=== PATIENT | female | born 1935 | race African-American/Black ===

== ENCOUNTER 2017-12-04 09:51 | Inpatient (IN) ==
[2017-12-04] MEDS ORDERED: ALBUTEROL/IPRATROPIUM 3 ML NEB RESP TX STA (10:03)
[2017-12-04] MEDS ORDERED: DILTIAZEM 50 MG/10 ML VIAL IV STA ×2 (10:03→14:37)
[2017-12-04] MEDS ORDERED: FUROSEMIDE 40 MG/4 ML VIAL IV STA ×2 (10:04→10:05)
[2017-12-04] MEDS ORDERED: DILTIAZEM INJ 100 MG in SODIUM CHLORIDE 0.9% 100 ML IV SCH (10:30)
[2017-12-04 10:33] LABS: Basophils # 0.1 10*3/uL (0.0-0.2); Basophils % 0.3 % (0.0-0.8); Eosinophils % 0.1 % (0.00-10.9); Hematocrit 40.9 VOL% (35.7-47.0); Immature Granulocytes % 2.9 %; Immature Granulocytes Absolute 0.44 #; Lymphocytes # 7.6 10*3/uL (1.4-4.0); Lymphocytes % 50.6 % (21.3-54.2); Mean Corpuscular HGB Conc 29.8 GM/DL (32-36); Mean Corpuscular Hemoglobin 23 PG (27-34); Mean Corpuscular Volume 75.7 FL (87-102); Monocytes % 6.7 % (1.7-12.7); NRBC # 0.05 10*3/uL; Neutrophils # 5.9 10*3/uL (1.4-7.4); Neutrophils % 39.4 % (38.7-73.9); Platelet Count 319 T/CUMM (130-400); Red Cell Distribution Width 17.2 % (9.3-17.3)
[2017-12-04 10:40] LABS: Hemoglobin 12.2 GM/DL (12.0-16.0)
[2017-12-04 10:44] LABS: INR 0.9; PT Patient Result 9.8 SECS; Partial Thromboplastin Time < 21.0 SECS (0-40)
[2017-12-04 10:52] LABS: Atypical Lymphocytes Few; Hypochromasia 1+; Lymphocytes 50 % (20-55); Platelet Estimate Adequate; Segmented Neutrophils 43 % (50-85); Total Cells Counted 100
[2017-12-04 10:59] LABS: Albumin 3.3 G/DL (3.4-5.0); Bilirubin,Total 0.4 MG/DL (0.2-1.0); Calcium 9.7 MG/DL (8.5-10.1); Osmolality,Calculated 287.5 MOS/KG (273-304); Potassium 4.3 MMOL/L (3.5-5.1); Total Protein 6.2 G/DL (6.4-8.3)
[2017-12-04] MEDS ORDERED: ALUM/MAG/SIMETH/LIDO VISC 1:1 30 ML BOTTLE PO ONE ×3 (11:45→19:03)
[2017-12-04] MEDS ORDERED: ALUM/MAG/SIMETH/LIDO VISC 1:1 30 ML BOTTLE PO STA (11:45)
[2017-12-04] MEDS ORDERED: ACETAMINOPHEN 325 MG TABLET PO PRN (13:30)
[2017-12-04] MEDS ORDERED: ONDANSETRON 4 MG/2 ML VIAL IV PRN (13:30)
[2017-12-04] MEDS ORDERED: DEXTROSE 50% 25 GM/50 ML VIAL IV PRN (13:50)
[2017-12-04] MEDS ORDERED: GLUCAGON 1 MG VIAL IM PRN (13:50)
[2017-12-04] MEDS ORDERED: APIXABAN 2.5 MG TABLET PO SCH (14:00)
[2017-12-04 14:01] LABS: Risk Ratio 2.64; VLDL CHOLESTEROL 42.6 MG/DL
[2017-12-04] MEDS ORDERED: methylPREDNISolone SOD SUC 40 MG/1 ML VIAL IV ONE (14:13)
[2017-12-04] MEDS: ALBUTEROL/IPRATROPIUM 3 ML NEB RESP TX SCH ×2 (14:21→19:03)
[2017-12-04] MEDS ORDERED: POLYETHYLENE GLYCOL POWDER 17 GM PACK PO SCH (17:00)
[2017-12-04] MEDS ORDERED: POLYETHYLENE GLYCOL POWDER 17 GM PACK PO ONE (17:00)
[2017-12-04] MEDS: BRIMONIDINE 0.1% OPH SOLN 5 ML BOTTLE BOTH EYES SCH ×2 (17:51→21:40)
[2017-12-04] MEDS: metFORMIN 500 MG TABLET PO SCH (18:00)
[2017-12-04] MEDS: INSULIN LISPRO 100 UNIT/ML SUBCUT SCH ×3 (18:30→22:03)
[2017-12-04] MEDS: ENOXAPARIN 80 MG/0.8 ML SYRINGE SUBCUT SCH (18:30)
[2017-12-04] MEDS ORDERED: FUROSEMIDE 40 MG/4 ML VIAL ONE (19:04)
[2017-12-04] MEDS ORDERED: METOPROLOL TARTRATE 5 MG/5 ML VIAL IV ONE (19:18)
[2017-12-04 20:22] LABS: ABG HCO3 22.7 MMOL/L (20-26); ABG Oxygen Saturation 97.6 % (95-100); ABG PCO2 37.2 MM HG (35-48); ABG TCO2 19.9 MMOL/L (23-27)
[2017-12-04] MEDS: CARVEDILOL 3.125 MG TABLET PO SCH (20:30)
[2017-12-04] MEDS: POTASSIUM CHLORIDE 20 MEQ TABLET PO SCH (20:30)
[2017-12-04] MEDS: THEOPHYLLINE ER 300 MG TABLET PO SCH (20:30)
[2017-12-04] MEDS: ROSUVASTATIN 20 MG TABLET PO SCH (20:31)
[2017-12-04] MEDS: methylPREDNISolone SOD SUC 40 MG/1 ML VIAL IV SCH (20:32)
[2017-12-04 20:35] LABS: Calcium 8.5 MG/DL (8.5-10.1); Osmolality,Calculated 285.2 MOS/KG (273-304); Potassium 4.2 MMOL/L (3.5-5.1)
[2017-12-04] MEDS ORDERED: predniSONE 20 MG TABLET PO SCH (21:00)
[2017-12-04] MEDS: LATANOPROST 0.005% OPH SOLN 2.5 ML BOTTLE BOTH EYES SCH (21:40)
[2017-12-04] MEDS: MORPHINE 4 MG/1 ML VIAL IV PRN (21:45)
[2017-12-04] MEDS: FUROSEMIDE 40 MG/4 ML VIAL IV SCH (22:36)
[2017-12-05] MEDS: ALBUTEROL/IPRATROPIUM 3 ML NEB RESP TX SCH ×5 (00:31→22:50)
[2017-12-05] MEDS: CLORAZEPATE 3.75 MG TABLET PO PRN ×3 (01:39→21:32)
[2017-12-05] MEDS ORDERED: SIMETHICONE CHEW 125 MG TABLET PO PRN (03:28)
[2017-12-05 04:21] LABS: Basophils % 0.1 % (0.0-0.8); Hematocrit 38.7 VOL% (35.7-47.0); Immature Granulocytes % 1.7 %; Immature Granulocytes Absolute 0.14 #; Lymphocytes # 0.9 10*3/uL (1.4-4.0); Lymphocytes % 10.3 % (21.3-54.2); Mean Corpuscular Hemoglobin 23 PG (27-34); Mean Corpuscular Volume 72.7 FL (87-102); Mean Platelet Volume 10.2 FL (9.6-12.0); Monocytes # 0.3 10*3/uL (0.11-0.8); Monocytes % 3.2 % (1.7-12.7); NRBC # 0.03 10*3/uL; Neutrophils % 84.7 % (38.7-73.9); Platelet Count 310 T/CUMM (130-400); Red Blood Count 5.32 MC/CUMM (3.8-5.5); Red Cell Distribution Width 17.4 % (9.3-17.3); White Blood Count 8.2 T/CUMM (4-12)
[2017-12-05] MEDS: MORPHINE 4 MG/1 ML VIAL IV PRN ×3 (04:31→17:40)
[2017-12-05] MEDS: INSULIN LISPRO 100 UNIT/ML SUBCUT SCH ×4 (04:43→20:56)
[2017-12-05 04:45] LABS: Albumin 3.2 G/DL (3.4-5.0); Bilirubin,Total 0.5 MG/DL (0.2-1.0); Calcium 8.4 MG/DL (8.5-10.1); Total Protein 6.3 G/DL (6.4-8.3)
[2017-12-05] MEDS: ENOXAPARIN 80 MG/0.8 ML SYRINGE SUBCUT SCH ×2 (06:58→18:15)
[2017-12-05] MEDS: metFORMIN 500 MG TABLET PO SCH ×2 (08:44→16:54)
[2017-12-05] MEDS: FEXOFENADINE 180 MG TABLET PO SCH (08:44)
[2017-12-05] MEDS: THEOPHYLLINE ER 300 MG TABLET PO SCH ×2 (08:45→21:33)
[2017-12-05] MEDS: PANTOPRAZOLE 40 MG TABLET PO SCH (08:46)
[2017-12-05] MEDS: POTASSIUM CHLORIDE 20 MEQ TABLET PO SCH (08:46)
[2017-12-05] MEDS: CARVEDILOL 3.125 MG TABLET PO SCH ×2 (08:46→21:33)
[2017-12-05] MEDS: methylPREDNISolone SOD SUC 40 MG/1 ML VIAL IV SCH ×2 (08:52→21:32)
[2017-12-05] MEDS: POLYETHYLENE GLYCOL POWDER 17 GM PACK PO SCH (08:55)
[2017-12-05] MEDS: BRIMONIDINE 0.1% OPH SOLN 5 ML BOTTLE BOTH EYES SCH ×3 (08:59→21:32)
[2017-12-05] MEDS ORDERED: PRAVASTATIN 20 MG TABLET PO SCH (09:00)
[2017-12-05] MEDS ORDERED: SIMETHICONE CHEW 125 MG TABLET PO SCH (09:00)
[2017-12-05] MEDS: FUROSEMIDE 40 MG/4 ML VIAL IV SCH ×2 (09:02→16:18)
[2017-12-05] MEDS ORDERED: CLOPIDOGREL 300 MG TABLET PO ONE (09:58)
[2017-12-05] MEDS ORDERED: FUROSEMIDE 40 MG/4 ML VIAL IV ONE (10:04)
[2017-12-05] MEDS: SPIRONOLACTONE 25 MG TABLET PO SCH (10:44)
[2017-12-05 13:30] LABS: Apearance,Urine Slightly Hazy (Clear); Bacteria,Urine Occasional /HPF (Few); Bilirubin,Urine Negative (Negative); Blood, Urine Negative (Negative); Calcium Oxalate Crystals,Urine Occasional /HPF (Few); Glucose,Urine (UA) 50 mg/dL (Negative); Hyaline Casts,Urine 2 /LPF (0-3); Ketones,Urine Negative (Negative); Mucus,Urine Occasional /LPF (Occasional); Nitrite,Urine Negative (Negative); Protein,Urine 30 MG/DL; RBC,Urine <1 /HPF (0-4); Urine Color Yellow (Yellow); Urine Specific Gravity 1.011 (1.001-1.035); Urine Urobilinogen < 2.0 EU/DL (0.2-1.0); WBC,Urine 1 /HPF (0-6)
[2017-12-05] MEDS ORDERED: METOPROLOL TARTRATE 5 MG/5 ML VIAL IV ONE ×2 (14:13→14:19)
[2017-12-05] MEDS ORDERED: NITROGLYCERIN DRIP 50 MG/250 ML BOTTLE IV PRN (15:24)
[2017-12-05] MEDS: LORazepam 2 MG/1 ML VIAL IV PRN (20:35)
[2017-12-05] MEDS: LATANOPROST 0.005% OPH SOLN 2.5 ML BOTTLE BOTH EYES SCH (21:32)
[2017-12-05] MEDS: ROSUVASTATIN 20 MG TABLET PO SCH (21:32)
[2017-12-06] MEDS: LORazepam 2 MG/1 ML VIAL IV PRN ×3 (00:49→23:46)
[2017-12-06] MEDS: ALBUTEROL/IPRATROPIUM 3 ML NEB RESP TX SCH ×6 (02:48→23:06)
[2017-12-06 06:08] LABS: Calcium 7.9 MG/DL (8.5-10.1); Osmolality,Calculated 273.4 MOS/KG (273-304); Potassium 4.1 MMOL/L (3.5-5.1)
[2017-12-06] MEDS: ENOXAPARIN 80 MG/0.8 ML SYRINGE SUBCUT SCH (06:38)
[2017-12-06] MEDS: cefTRIAXone 1,000 MG in SYRINGE 1 EACH IV SCH (08:04)
[2017-12-06] MEDS: FEXOFENADINE 180 MG TABLET PO SCH (08:13)
[2017-12-06] MEDS: SPIRONOLACTONE 25 MG TABLET PO SCH (08:13)
[2017-12-06] MEDS: methylPREDNISolone SOD SUC 40 MG/1 ML VIAL IV SCH ×2 (08:13→22:41)
[2017-12-06] MEDS: THEOPHYLLINE ER 300 MG TABLET PO SCH ×2 (08:13→22:41)
[2017-12-06] MEDS: PANTOPRAZOLE 40 MG TABLET PO SCH (08:13)
[2017-12-06] MEDS: CARVEDILOL 3.125 MG TABLET PO SCH (08:13)
[2017-12-06] MEDS: CLORAZEPATE 3.75 MG TABLET PO PRN (08:13)
[2017-12-06] MEDS: metFORMIN 500 MG TABLET PO SCH (08:14)
[2017-12-06] MEDS: POLYETHYLENE GLYCOL POWDER 17 GM PACK PO SCH (08:14)
[2017-12-06] MEDS: BRIMONIDINE 0.1% OPH SOLN 5 ML BOTTLE BOTH EYES SCH ×3 (08:14→22:41)
[2017-12-06] MEDS: INSULIN LISPRO 100 UNIT/ML SUBCUT SCH ×4 (08:14→23:10)
[2017-12-06] MEDS: FUROSEMIDE 40 MG/4 ML VIAL IV SCH ×3 (08:14→16:16)
[2017-12-06] MEDS ORDERED: MIDAZOLAM 2 MG/2 ML VIAL ONE (11:22)
[2017-12-06] MEDS ORDERED: HYDROmorphone 2 MG/1 ML VIAL ONE (11:22)
[2017-12-06] MEDS ORDERED: ENOXAPARIN 40 MG/0.4 ML SYRINGE SUBCUT SCH (12:30)
[2017-12-06] MEDS: ROSUVASTATIN 20 MG TABLET PO SCH (22:41)
[2017-12-06] MEDS: LATANOPROST 0.005% OPH SOLN 2.5 ML BOTTLE BOTH EYES SCH (22:41)
[2017-12-06] MEDS: NEBIVOLOL 5 MG TABLET PO SCH (22:41)
[2017-12-07] MEDS: ALBUTEROL/IPRATROPIUM 3 ML NEB RESP TX SCH ×2 (02:27→07:15)
[2017-12-07] MEDS: MORPHINE 4 MG/1 ML VIAL IV PRN (02:56)
[2017-12-07 05:26] LABS: Basophils % 0.1 % (0.0-0.8); Hematocrit 38.5 VOL% (35.7-47.0); Hemoglobin 12.4 GM/DL (12.0-16.0); Immature Granulocytes % 0.9 %; Lymphocytes # 0.4 10*3/uL (1.4-4.0); Lymphocytes % 3.8 % (21.3-54.2); Mean Corpuscular HGB Conc 32.2 GM/DL (32-36); Mean Corpuscular Hemoglobin 22 PG (27-34); Mean Corpuscular Volume 69.4 FL (87-102); Mean Platelet Volume 10.2 FL (9.6-12.0); Monocytes # 0.5 10*3/uL (0.11-0.8); Monocytes % 4.6 % (1.7-12.7); NRBC # 0.07 10*3/uL; Neutrophils # 10.2 10*3/uL (1.4-7.4); Neutrophils % 90.6 % (38.7-73.9); Platelet Count 335 T/CUMM (130-400); Red Blood Count 5.55 MC/CUMM (3.8-5.5); Red Cell Distribution Width 17.4 % (9.3-17.3); White Blood Count 11.2 T/CUMM (4-12)
[2017-12-07 05:47] LABS: Calcium 7.4 MG/DL (8.5-10.1); Osmolality,Calculated 270.5 MOS/KG (273-304); Potassium 4.3 MMOL/L (3.5-5.1)
[2017-12-07 06:08] LABS: Anisocytosis Slight; Band Neutrophils 3 % (0-10); Lymphocytes 3 % (20-55); Microcytosis 2+; Platelet Estimate Normal; Segmented Neutrophils 93 % (50-85); Total Cells Counted 100
[2017-12-07 08:03] VITALS: BP 75/44
[2017-12-07] MEDS: THEOPHYLLINE ER 300 MG TABLET PO SCH (08:16)
[2017-12-07] MEDS: cefTRIAXone 1,000 MG in SYRINGE 1 EACH IV SCH (08:16)
[2017-12-07] MEDS: PANTOPRAZOLE 40 MG TABLET PO SCH (08:16)
[2017-12-07] MEDS: FEXOFENADINE 180 MG TABLET PO SCH (08:16)
[2017-12-07] MEDS: FUROSEMIDE 40 MG/4 ML VIAL IV SCH (08:17)
[2017-12-07] MEDS: NEBIVOLOL 5 MG TABLET PO SCH (08:17)
[2017-12-07] MEDS: methylPREDNISolone SOD SUC 40 MG/1 ML VIAL IV SCH (08:17)
[2017-12-07] MEDS: POLYETHYLENE GLYCOL POWDER 17 GM PACK PO SCH (08:17)
[2017-12-07] MEDS: BRIMONIDINE 0.1% OPH SOLN 5 ML BOTTLE BOTH EYES SCH (08:17)
[2017-12-07] MEDS: INSULIN LISPRO 100 UNIT/ML SUBCUT SCH ×2 (08:17→08:52)
[2017-12-07 08:55] LABS: ABG HCO3 20.3 MMOL/L (20-26); ABG Oxygen Saturation 98.5 % (95-100); ABG PH 7.519 (7.35-7.45); ABG TCO2 13.9 MMOL/L (23-27)
[2017-12-07 09:04] LABS: ABG PCO2 19.5 MM HG (35-48)
[2017-12-07] MEDS ORDERED: NALOXONE 0.4 MG/ML VIAL ONE (09:09)
[2017-12-07] MEDS ORDERED: DOBUTamine 500 MG/250 ML PREMIX IV ONE (09:13)
[2017-12-07] MEDS ORDERED: SODIUM CHLORIDE 0.9% 250 ML IV ONE (09:14)
[2017-12-07] MEDS ORDERED: NALOXONE 0.4 MG/ML VIAL IV PRN (09:19)
[2017-12-07] MEDS ORDERED: DOBUTamine 500 MG/250 ML PREMIX IV SCH (09:30)
[2017-12-07] MEDS ORDERED: ETOMIDATE 20 MG/10 ML VIAL IV ONE ×2 (09:45→09:49)
[2017-12-07] MEDS ORDERED: SUCCINYLCHOLINE 200 MG/10 ML VIAL ONE (09:46)
[2017-12-07] MEDS ORDERED: PROPOFOL 1,000 MG/100 ML BOTTLE IV ONE (09:47)
[2017-12-07] MEDS ORDERED: PROPOFOL 1,000 MG/100 ML BOTTLE IV SCH (10:00)
== END 2017-12-07 10:12 | disposition expired | DRG 208 ==
LOC: EDBD → EDUNIT# → N.ED 09:51 → N.EDINP 13:30 → SUATTDRO 13:30 → N.2W 14:58 → N.TELEN 16:22 → N.ICU 19:57
PROVIDERS: ADMIT Internal Medicine; ATTEND Hospitalist